=== PATIENT | female | born 1990 | race African-American/Black ===

== ENCOUNTER 2016-12-24 19:15 | Inpatient (IN) | payer MEDICAID ==
[~2016-12-24] VITALS: Ht 165.1 cm; Wt 94.2 kg
--- NOTE | 2016-12-24 19:10 | NUR ---
ARRIVAL TO OB UNIT. [id number]. EDC 12/20/16. C/O CONTRACTIONS FOR LAST 30 MINUTES. APPEARS VERY UNCOMFORTABLE. OREINTED TO ROOM AND CALL SYTEM. PLAN OF CARE DISCUSSED.
[~2016-12-24 19:15] MED LIST: AMOXICILLIN500 MG PO; BACTRIM DS1 TAB PO; DOXYCYC MONO100 MG OR; FERR SULFATE325 MG; IBUPROFEN600 MG PO; LORTAB 10 OR; LORTAB5 PO; MACROBID100 MG PO; NO HOME MEDS; PRENATAL3 PO; TESSALON PER100 MG PO; ZOFRAN ODT4 MG PO; ZOFRAN ODT8 MG PO
--- NOTE | 2016-12-24 19:25 | NUR ---
CALL PLACED TO DR. MEYERS AND REPORT GIVEN RE/ PATIENT COMPLAINTS AND LABOR STATUS. MD ADVISED HE WILL BE EN ROUTE.
--- NOTE | 2016-12-24 19:28 | NUR ---
PATIENT AMBULATED TO ROOM ACCOMPANIED BY FAMILY MEMBERS.
[2016-12-24 19:31] LABS: URINE BILIRUBIN - DIPSTICK NEGATIVE (NEGATIVE); URINE BLOOD DIPSTICK NEGATIVE (NEGATIVE); URINE COLOR YELLOW; URINE GLUCOSE - DIPSTICK NEGATIVE (NEGATIVE); URINE KETONE TRACE mg/dL (NEGATIVE); URINE NITRITE - DIPSTICK NEGATIVE (Negative); URINE PROTEIN - DIPSTICK 30 mg/dL (NEG-TRACE); URINE SPECIFIC GRAVITY >=1.030
[2016-12-24 19:32] LABS: URINE LEUK ESTERASE MODERATE (NEGATIVE)
[2016-12-24 19:33] LABS: URINE CLARITY CLOUDY
--- NOTE | 2016-12-24 19:35 | NUR ---
IV SITE INITIATED IN RT. HAND X 3 ATTEMPTS.
--- NOTE | 2016-12-24 19:40 | NUR ---
DR. MEYERS IN ROOM. PATIENT INVOLUNTARILY PUSHING. COPING WITH ENCOURAGEMENT AND SUPPORT FROM STAFF AND FAMILY MEMBERS.
--- NOTE | 2016-12-24 19:45 | NUR ---
RESPIRATORY THERAPY IN ROOM . PATIENT PREARED FOR DELIVERY.
--- NOTE | 2016-12-24 19:46 | NUR ---
VIABLE MALE INFANT OVER INTACT PERINEUM. IV PITOCIN INITIATED.
[2016-12-24 19:49] LABS: URINE BACTERIA FEW hpf; URINE SQUAMOUS EPITHELIAL CELL FEW EPI/hpf (0-FEW); URINE WBC 50-100 WBC/hpf (0-5)
[2016-12-24 19:50] VITALS: BP 120/64
[2016-12-24 19:50] LABS: BARBITURATES NEGATIVE (NEGATIVE); COCAINE NEGATIVE (NEGATIVE); METHADONE NEGATIVE (NEGATIVE); OXCYCODONE NEGATIVE (NEGATIVE); TETRAHYDROCANNABIONOL POSITIVE (NEGATIVE); TRICYLIC ANTIDEPRESSANTS NEGATIVE (NEGATIVE)
--- NOTE | 2016-12-24 19:50 | NUR ---
RECOVERY STARTED. SEE FUNDAL CHECKS.
[2016-12-24 20:05] VITALS: BP 127/78
--- NOTE | 2016-12-24 20:05 | NUR ---
IV IN RT. HAND NOTED TO BE INFILTRATED. SWELLING WITHOUT ERYTHEMA. IV SITE DISCONTINUED.
--- NOTE | 2016-12-24 20:10 | NUR ---
UNABLE TO ACCESS IV SITE. PER DR. MEYERS, MAY USE PITOCIN IM INSTEAD.
[2016-12-24 20:20] VITALS: BP 113/56
--- NOTE | 2016-12-24 20:20 | NUR ---
PITOCIN 10 UNITS GIVEN IM IN LT. THIGH WITHOUT DIFFICULTY. PATIENT TOLERATED WELL.
[2016-12-24 20:35] VITALS: BP 128/71
--- NOTE | 2016-12-24 20:36 | NUR ---
SROM LARGE AMOUNT MECONIUM-STAINED AMNIOTIC FLUID. RESPIRATORY THERAPY INFORMED OF NEED TO ATTEND DELIVERY.
[2016-12-24 20:50] VITALS: BP 113/65
--- NOTE | 2016-12-24 20:50 | NUR ---
RECOVERY COMPLETED. REPORT GIVEN TO Waldemar BUCKLEY RN, WHO WILL BE ASSUMING CARE OF PATIENT.
--- NOTE | 2016-12-24 21:25 | NUR ---
PT WAS ASSISTED UP TO BATHROOM. PERICARE EXPLAINED. PT CLEANED UP, PERICARE DONE. AMBULATED TO ROOM WITH STANDBY ASST AT 2124. DENIES DIZZINESS/WEAKNESS. ORIENTED TO ROOM AND CALL LIGHT. BED IN LOW POSITION, CALL LIGHT IN REACH. FRESH WATER AND JUICE GIVEN WITH FOOD. WILL CONTINUE TO MONITOR.
[2016-12-24 22:20] VITALS: BP 119/58
[2016-12-24 22:21] LABS: HEMATOCRIT 30.1 % (37.0-47.0); HEMOGLOBIN 10.2 g/dl (12.0-16.0); IMMATURE GRANULOCYTES 0.3 % (0.0-1.0); MEAN CELL VOLUME 72.9 fL CALC (80.0-100.0); MEAN CORPUSCULAR HGB 24.7 pG CALC (26.0-32.0); MEAN CORPUSCULAR HGB CONC 33.9 g/L CALC (32.0-36.0); NEUT# 11.93 thou/uL (2.00-7.15); RED BLOOD COUNT 4.13 mill/uL (4.20-5.60); RED CELL DISTRI WIDTH 15.1 % (11.5-15.5)
--- NOTE | 2016-12-24 22:50 | NUR ---
IN TO CHECK ON PATIENT. VSS CHARTED. PT TALKING ON PHONE. DENIES ANY NEEDS AT THIS TIME. CALL LIGHT IN REACH. WILL CONTINUE TO MONITOR.
[2016-12-24 23:31] LABS: ALBUMIN 3.2 g/dL (3.2-5.0); ALKALINE PHOSPHATASE 187 u/l (38-126); ANION GAP 14 (6-22 (CALC)); BILIRUBIN, TOTAL 0.4 mg/dL (0.0-1.4); BUN 7 mg/dL (7-17); BUN/CREATININE RATIO 10 (12-20 (CALC)); CALCIUM 9.4 mg/dL (8.4-10.2); CARBON DIOXIDE 20 mmol/l (22-30); CHLORIDE 107 mmol/l (95-108); CREATININE 0.7 mg/dL (0.5-1.0); GFR > 60 ML/MIN (>=60 (CALC)); GFR FOR AFR.AMER. > 60 ML/MIN (>=60 (CALC)); GLUCOSE 118 mg/dL (65-105); POTASSIUM 4.3 mmol/l (3.5-5.1); SGOT/AST 17 u/l (14-36); SGPT/ALT 17 u/l (9-52); SODIUM 137 mmol/l (137-146); TOTAL PROTEIN 6.7 g/dL (6.3-8.2)
[2016-12-25 05:30] VITALS: BP 121/69
--- NOTE | 2016-12-25 05:30 | NUR ---
IN ROOM TO DO VS AND LAB DRAW. PT AWAKE, LAYING ON HER. PLACED IN OPEN CRIB. CBC DRAWN LAC X1 ATTEMPT. VSS CHARTED.
[2016-12-25 05:40] LABS: HEMATOCRIT 26.9 % (37.0-47.0); HEMOGLOBIN 9.3 g/dl (12.0-16.0); IMMATURE GRANULOCYTES 0.4 % (0.0-1.0); MEAN CELL VOLUME 73.1 fL CALC (80.0-100.0); MEAN CORPUSCULAR HGB 25.3 pG CALC (26.0-32.0); MEAN CORPUSCULAR HGB CONC 34.6 g/L CALC (32.0-36.0); NEUT# 10.45 thou/uL (2.00-7.15); RED BLOOD COUNT 3.68 mill/uL (4.20-5.60)
--- NOTE | 2016-12-25 06:34 | NUR ---
PT IN ROOM, EYES CLOSED. CALL LIGHT IN REACH. REPORT PREPARED FOR ONCOMING SHIFT.
--- NOTE | 2016-12-25 07:30 | NUR ---
SITS IN BED, HOLDING , POSITIVE BONDING.
--- NOTE | 2016-12-25 09:30 | NUR ---
PT RESTS QUIETLY, TALKS ON PHONE.
--- NOTE | 2016-12-25 10:50 | NUR ---
REIVEWED PT RECORD, H/O MRSA IN 03/2011, PT DOES NOT REMEMBER HAVING MRSA. REMEMBERED HAVING INFECTION. STATES SHE WAS NOT TOLD IT WAS MRSA. EXPLAINED TO PT PROTOCOL FOR H/O MRSA, WILL DO NARES CULTURE.
--- NOTE | 2016-12-25 11:15 | NUR ---
DR MEYERS DISCUSSES PLAN FOR TUBAL TO BE DONE AT LATER DATE.
--- NOTE | 2016-12-25 12:21 | NUR ---
PT SITS IN BED TALKS WITH VISITORS.
--- NOTE | 2016-12-25 13:44 | NUR ---
PT SITS IN BED, STATES SHE HAS NO PROBLEM URINATING, DOES PERICARE. STATES SHE PASSED DARK CLOT APPROX SMALLER THAN LEMON SIZED. FUNDIS FIRM, LOCHIA LIGHT AT THIS TIME.
--- NOTE | 2016-12-25 13:45 | NUR ---
EXPLAINED TO PT DISCHARGE PLAN PAPERS TO READ, PT WATCHING EDUCATIONAL VIDEOS.
[2016-12-25 16:30] VITALS: BP 116/59
--- NOTE | 2016-12-25 16:42 | NUR ---
PT STATES SHE WATCHED VIDEOS, RESTS IN BED.
--- NOTE | 2016-12-25 17:00 | NUR ---
[facility] REPRESENTATIVE VIGIL IN TO TALK TO PT.
--- NOTE | 2016-12-25 18:17 | NUR ---
SITS IN BED WATCHING TV WITH OLDER CHILD.
--- NOTE | 2016-12-25 18:45 | NUR ---
REPORT RECEIVED FROM Harley LONDON RN
--- NOTE | 2016-12-26 | NUR ---
PT DENIES ANY PAIN AT THIS TIME. DENIES ANY NEEDS OR CONCERNS. POC REVIEWED, UNDERSTANDING VERBALIZED
--- NOTE | 2016-12-26 05:08 | NUR ---
PT RESTING QUIETLY
--- NOTE | 2016-12-26 05:09 | NUR ---
REPORT PREPARED FOR ONCOMING SHIFT
[2016-12-26 09:20] VITALS: BP 112/72
--- NOTE | 2016-12-26 14:47 | NUR ---
PATIENT READY FOR DISCHARGE. ALL INSTRUCTIONS GIVEN AND UNDERSTOOD. ALL DISCHARGE PAPERS AND TEACHING SIGNED. PATIENT IN NO PAIN AT THIS TIME. PT WILL ARRAGNE FOR FOLLOW UP CARE. PT ESCORTED TO LOBBY VIA WHEELCHAIR.
== END 2016-12-26 14:45 | disposition home or self-care (01) | DRG 775 ==
LOC: OB 19:15 → OBOP 19:15 → OB 19:25
PROC: 10E0XZZ Delivery of Products of Conception, External Approach (ICD-10-PCS; principal; 2016-12-24)
DX: O99.824 Streptococcus B carrier state complicating childbirth (principal); D62 Acute posthemorrhagic anemia; O90.81 Anemia of the puerperium; O69.81X0 Labor and delivery complicated by cord around neck, without compression, not applicable or unspecified; O77.0 Labor and delivery complicated by meconium in amniotic fluid; Z86.14 Personal history of Methicillin resistant Staphylococcus aureus infection; Z3A.40 40 weeks gestation of pregnancy; Z37.0 Single live birth

== ENCOUNTER 2017-04-30 19:57 | Emergency (ER) | payer SELFPAY ==
[~2017-04-30] VITALS: Ht 165.1 cm; Wt 60.5 kg
[2017-04-30] MEDS ORDERED: (None)3.5 GM OU (20:40)
[2017-04-30] MEDS ORDERED: GENTAMICIN15 ML/BTL OU (20:40)
[2017-04-30 21:00] VITALS: BP 124/68
== END 2017-04-30 21:00 | disposition home or self-care (01) | DRG 125 ==
LOC: ED 19:57
DX: H10.9 Unspecified conjunctivitis (principal)

== ENCOUNTER 2017-06-11 08:53 | Emergency (ER) | payer SELFPAY ==
[~2017-06-11] VITALS: Ht 165.1 cm; Wt 82.0 kg
[~2017-06-11 08:53] MED LIST changes: +(None)3.5 GM OU; +GENTAMICIN15 ML/BTL OU
[2017-06-11 09:41] LABS: URINE BILIRUBIN - DIPSTICK NEGATIVE (NEGATIVE); URINE BLOOD DIPSTICK NEGATIVE (NEGATIVE); URINE COLOR YELLOW; URINE GLUCOSE - DIPSTICK NEGATIVE (NEGATIVE); URINE KETONE NEGATIVE (NEGATIVE); URINE NITRITE - DIPSTICK NEGATIVE (Negative); URINE PROTEIN - DIPSTICK TRACE mg/dL (NEG-TRACE); URINE SPECIFIC GRAVITY >=1.030; URINE UROBILINOGEN - DIPSTICK 0.2 E.U./dL (0.2)
[2017-06-11 09:43] LABS: URINE CLARITY HAZY; URINE LEUK ESTERASE SMALL (NEGATIVE)
[2017-06-11 09:49] LABS: URINE SQUAMOUS EPITHELIAL CELL FEW EPI/hpf (0-FEW)
[2017-06-11 10:09] LABS: HEMATOCRIT 36.4 % (37.0-47.0); HEMOGLOBIN 12.6 g/dl (12.0-16.0); IMMATURE GRANULOCYTES 0.3 % (0.0-1.0); MEAN CELL VOLUME 73.5 fL CALC (80.0-100.0); MEAN CORPUSCULAR HGB 25.5 pG CALC (26.0-32.0); MEAN CORPUSCULAR HGB CONC 34.6 g/L CALC (32.0-36.0); NEUT# 4.94 thou/uL (2.00-7.15); RED BLOOD COUNT 4.95 mill/uL (4.20-5.60); RED CELL DISTRI WIDTH 16.2 % (11.5-15.5)
[2017-06-11 10:26] LABS: ALBUMIN 4.4 g/dL (3.2-5.0); ALKALINE PHOSPHATASE 68 u/l (38-126); ANION GAP 17 (6-22 (CALC)); BILIRUBIN, TOTAL 0.7 mg/dL (0.0-1.4); BUN 6 mg/dL (7-17); BUN/CREATININE RATIO 9 (12-20 (CALC)); CALCIUM 9.4 mg/dL (8.4-10.2); CARBON DIOXIDE 22 mmol/l (22-30); CHLORIDE 105 mmol/l (95-108); CREATININE 0.7 mg/dL (0.5-1.0); GFR > 60 ML/MIN (>=60 (CALC)); GFR FOR AFR.AMER. > 60 ML/MIN (>=60 (CALC)); GLUCOSE 85 mg/dL (65-105); LIPASE 95 u/l (23-300); POTASSIUM 3.8 mmol/l (3.5-5.1); SGOT/AST 16 u/l (14-36); SGPT/ALT 30 u/l (9-52); SODIUM 141 mmol/l (137-146); TOTAL PROTEIN 7.8 g/dL (6.3-8.2)
[2017-06-11] MEDS ORDERED: CEPHALEXIN500 M1 PO (12:33)
[2017-06-11 12:35] VITALS: BP 109/63
== END 2017-06-11 12:46 | disposition home or self-care (01) | DRG 781 ==
LOC: ED 08:53
PROVIDERS: Family Medicine
DX: O23.41 Unspecified infection of urinary tract in pregnancy, first trimester (principal); R53.1 Weakness; Z3A.01 Less than 8 weeks gestation of pregnancy; R19.7 Diarrhea, unspecified; R10.13 Epigastric pain; R10.32 Left lower quadrant pain; R10.31 Right lower quadrant pain

== ENCOUNTER 2017-10-29 11:31 | Emergency (ER) | payer SELFPAY ==
[~2017-10-29] VITALS: Ht 165.1 cm; Wt 76.4 kg
[~2017-10-29 11:31] MED LIST changes: +CEPHALEXIN500 M1 PO
[2017-10-29 12:41] LABS: HEMATOCRIT 38.4 % (37.0-47.0); HEMOGLOBIN 13.1 g/dl (12.0-16.0); IMMATURE GRANULOCYTES 0.3 % (0.0-1.0); MEAN CELL VOLUME 76.3 fL CALC (80.0-100.0); MEAN CORPUSCULAR HGB CONC 34.1 g/L CALC (32.0-36.0); NEUT# 5.24 thou/uL (2.00-7.15); RED BLOOD COUNT 5.03 mill/uL (4.20-5.60); RED CELL DISTRI WIDTH 15.7 % (11.5-15.5)
[2017-10-29 12:44] LABS: BARBITURATES NEGATIVE (NEGATIVE); COCAINE NEGATIVE (NEGATIVE); METHADONE NEGATIVE (NEGATIVE); OXCYCODONE NEGATIVE (NEGATIVE); TETRAHYDROCANNABIONOL POSITIVE (NEGATIVE); TRICYLIC ANTIDEPRESSANTS NEGATIVE (NEGATIVE)
[2017-10-29 12:48] LABS: ALBUMIN 4.4 g/dL (3.2-5.0); ALKALINE PHOSPHATASE 72 u/l (38-126); ANION GAP 18 (6-22 (CALC)); BILIRUBIN, TOTAL 0.6 mg/dL (0.0-1.4); BUN 10 mg/dL (7-17); BUN/CREATININE RATIO 12 (12-20 (CALC)); CALCIUM 9.7 mg/dL (8.4-10.2); CARBON DIOXIDE 20 mmol/l (22-30); CHLORIDE 109 mmol/l (95-108); CREATININE 0.8 mg/dL (0.5-1.0); GFR > 60 ML/MIN (>=60 (CALC)); GFR FOR AFR.AMER. > 60 ML/MIN (>=60 (CALC)); GLUCOSE 91 mg/dL (65-105); LIPASE 79 u/l (23-300); POTASSIUM 3.8 mmol/l (3.5-5.1); SGOT/AST 25 u/l (14-36); SGPT/ALT 36 u/l (9-52); SODIUM 142 mmol/l (137-146); TOTAL PROTEIN 7.6 g/dL (6.3-8.2)
[2017-10-29 14:54] VITALS: BP 113/71
== END 2017-10-29 14:58 | disposition home or self-care (01) | DRG 313 ==
LOC: ED 11:31
PROVIDERS: Emergency Medicine
DX: R07.89 Other chest pain (principal)

== ENCOUNTER 2018-10-24 15:06 | Emergency (ER) | payer SELFPAY ==
[~2018-10-24] VITALS: Ht 165.1 cm; Wt 69.0 kg
[2018-10-24] MEDS ORDERED: TORADOL PO (15:32)
[2018-10-24] MEDS ORDERED: ZITHROMAX250 MG PO (15:32)
[2018-10-24 15:46] VITALS: BP 114/68
== END 2018-10-24 15:46 | disposition home or self-care (01) | DRG 103 ==
LOC: ED 15:06
DX: R51 Headache (principal)

== ENCOUNTER 2018-11-28 11:39 | Emergency (ER) | payer SELFPAY ==
[~2018-11-28] VITALS: Ht 165.1 cm; Wt 71.6 kg
[~2018-11-28 11:39] MED LIST changes: +TORADOL PO; +ZITHROMAX250 MG PO
[2018-11-28 12:42] LABS: URINE BILIRUBIN - DIPSTICK NEGATIVE (NEGATIVE); URINE BLOOD DIPSTICK NEGATIVE (NEGATIVE); URINE COLOR YELLOW; URINE GLUCOSE - DIPSTICK NEGATIVE (NEGATIVE); URINE KETONE NEGATIVE (NEGATIVE); URINE LEUK ESTERASE TRACE (NEGATIVE); URINE NITRITE - DIPSTICK NEGATIVE (Negative); URINE PROTEIN - DIPSTICK NEGATIVE (NEG-TRACE); URINE UROBILINOGEN - DIPSTICK 0.2 E.U./dL (0.2)
[2018-11-28 12:57] LABS: HEMATOCRIT 34.1 % (37.0-47.0); HEMOGLOBIN 12.2 g/dl (12.0-16.0); IMMATURE GRANULOCYTES 0.2 % (0.0-5.0); MEAN CELL VOLUME 79.1 fL CALC (80.0-100.0); MEAN CORPUSCULAR HGB 28.3 pG CALC (26.0-32.0); MEAN CORPUSCULAR HGB CONC 35.8 g/L CALC (32.0-36.0); NEUT# 6.15 thou/uL (2.00-7.15); RED BLOOD COUNT 4.31 mill/uL (4.20-5.60); RED CELL DISTRI WIDTH 13.4 % (11.5-15.5)
[2018-11-28 13:20] LABS: ALBUMIN 3.6 g/dL (3.2-5.0); ALKALINE PHOSPHATASE 42 u/l (38-126); BILIRUBIN, TOTAL 0.3 mg/dL (0.0-1.4); BUN 6 mg/dL (7-17); BUN/CREATININE RATIO 11 (12-20 (CALC)); CARBON DIOXIDE 24 mmol/l (22-30); CHLORIDE 103 mmol/l (95-108); CREATININE 0.5 mg/dL (0.5-1.0); GFR > 60 ML/MIN (>=60 (CALC)); GFR FOR AFR.AMER. > 60 ML/MIN (>=60 (CALC)); LIPASE 70 u/l (23-300); POTASSIUM 3.7 mmol/l (3.5-5.1); SGOT/AST 11 u/l (14-36); TOTAL PROTEIN 6.4 g/dL (6.3-8.2)
[2018-11-28 13:23] LABS: ANION GAP 10 (6-22 (CALC)); SODIUM 133 mmol/l (137-146)
[2018-11-28] MEDS ORDERED: PHENERGAN25 MG/TAB PO (14:00)
[2018-11-28 14:03] LABS: BETA-HCG, QUANT(RESULT NUMBER) 87237 mIU/mL
[2018-11-28 14:36] VITALS: BP 112/68
== END 2018-11-28 14:36 | disposition home or self-care (01) | DRG 833 ==
LOC: ED 11:39
PROVIDERS: Family Medicine
DX: O26.891 Other specified pregnancy related conditions, first trimester (principal); Z3A.11 11 weeks gestation of pregnancy; R51 Headache; R10.13 Epigastric pain; M25.552 Pain in left hip; M25.551 Pain in right hip; R10.32 Left lower quadrant pain; R10.31 Right lower quadrant pain

== ENCOUNTER 2020-02-19 16:00 | Emergency (ER) | payer MEDICAID ==
[~2020-02-19 16:00] MED LIST changes: +PHENERGAN25 MG/TAB PO
[2020-02-19] MEDS ORDERED: ULTRAM50 M1 PO (16:34)
[2020-02-19] MEDS ORDERED: KEFLEX500 MG PO (16:34)
[2020-02-19 16:36] VITALS: BP 136/76
== END 2020-02-19 16:36 | disposition home or self-care (01) ==
LOC: ED 16:00
DX: K02.9 Dental caries, unspecified (principal); K04.7 Periapical abscess without sinus